=== PATIENT | female | born 1960 | race Caucasian/White ===

== ENCOUNTER → 2016-12-12 | Outpatient (CLI) | payer MEDICARE, OTHER ==
--- NOTE | ~2016-12-12 | TH ---
Unit #: [id number] #: [id number] Patient: PIERRE VÁSQUEZ [id number] [address] [address] [id number] O MR#: [id number] NAME: PIERRE VÁSQUEZ : 1960 SEX: F STUDY DATE/TIME: 12/12/2016 UNIT: CN ROOM: STUDY DESCRIPTION: Lexiscan stress test - Nuclear Attending Physician: Kushal Sung M.D. Referring Physician: Kushal Sung M.D. Primary Care Physician: Kushal Sung M.D. CARDIOLOGY REPORT PROCEDURE PERFORMED Lexiscan Cardiolite stress test - Nuclear portion. PROCEDURE Using technetium 99m-labeled Cardiolite, rest and stress SPECT images were obtained. Multiple SPECT images were obtained in various views, including horizontal and vertical long axis and short axis views of the left ventricle. Images were obtained by gated SPECT method. The patient was administered 11.32 mCi of Cardiolite at rest. The patient was administered 34.5 mCi of Cardiolite after Lexiscan infusion was completed. On the stress images, there is normal perfusion noted. The rest images show normal perfusion. Comparing the rest and stress images, there is no stress-induced ischemia noted. The left ventricular ejection fraction is calculated to be 67%. There is no focal wall motion abnormality seen. CONCLUSION 1. No stress-induced ischemia noted. 2. The left ventricular ejection fraction is calculated to be 67%. 3. There is no focal wall motion abnormality seen. 4. Normal Lexiscan Cardiolite stress test. Dictated by... Monique Alvares/chris TD: 12/12/2016 16:17 JOB #: [id number] CARDIOLOGY REPORT X Mahogany Watson MD <ELECTRONICALLY SIGNED> 05/06/17 1428 CARDIOLOGY REPORT
--- NOTE | ~2016-12-12 | ST ---
Unit #: [id number] #: [id number] Patient: PIERRE VÁSQUEZ [id number] [address] [address] [id number] O MR#: [id number] NAME: PIERRE VÁSQUEZ : 1960 SEX: F STUDY DATE/TIME: 12/12/2016 UNIT: [facility] ROOM: STUDY DESCRIPTION: Stress Test Attending Physician: Kushal Sung M.D. Referring Physician: Kushal Sung M.D. Primary Care Physician: Kushal Sung M.D. CARDIOLOGY REPORT EXAM EKG portion of Lexiscan-Cardiolite testing REASON FOR TEST Intermittent chest pain for the last two months. DESCRIPTION OF PROCEDURE AND FINDINGS Resting EKG shows sinus bradycardia, rate of 56 beats per minute. The patient was given 0.4 mg of Lexiscan and a resting heart rate of 56 garrett to a maximum heart rate of 100 beats per minute. This value represented 60% of the maximal age-predicted heart rate. The resting blood pressure was 161/76, garrett to a maximum blood pressure of 161/76. The exercise stress test was stopped due to protocol completion. During the procedure she did become mildly short of breath and had chest pain which resolved in recovery. No obvious ST depression or elevation was noted and no arrhythmia was noted. Please correlate with Cardiolite imaging. Dictated by... Pavithra Spears APRN for Monique Alvares TD: 12/12/2016 17:09 JOB #: [id number] CARDIOLOGY REPORT X CARDIOLOGY REPORT
== END | disposition home or self-care (01) ==
LOC: CNUC 08:36
DX: R07.9 Chest pain, unspecified (principal); R94.31 Abnormal electrocardiogram [ECG] [EKG]; I10 Essential (primary) hypertension
CPT/HCPCS: 78452; 93017; A9500; J2785